=== PATIENT | male | born 1955 | race Two or more races ===

== ENCOUNTER 2024-04-02 12:23 | Inpatient (IN) | payer OTHER, MEDICAID ==
[2024-04-02] VITALS (7 sets, daily range): BP systolic 112–176; BP diastolic 77–106; PULSE 68–130; RESP 17–19; TEMP 98.2–98.9; O2SAT 96–98
[~2024-04-02] VITALS: Ht 167.6 cm; Wt 50.0 kg
[2024-04-02] MEDS: ONDANSETRON HCL 4 MG/2 ML VIAL IV ONE (13:10)
[2024-04-02] MEDS: SODIUM CHLORIDE 0.9% 1,000 ML IV ONE (13:10)
[2024-04-02 13:27] LABS: Basophils # (auto) 0.1 10 ^3/uL (0-0.2); Eosinophils # (auto) 0 10 ^3/uL (0-0.8); Neutrophils # (auto) 10.1 10 ^3/uL (1.6-8.6); White Blood Cell 12.9 10^3/uL (4.4-10.8)
[2024-04-02 13:28] LABS: Basophils % (auto) 0.6 % (0.0-2.0); Eosinophils % (auto) 0.1 % (0.0-7.0); Hematocrit 44.7 % (41.0-53.0); Hemoglobin 15.2 g/dL (13.5-17.5); Lymphocytes # (auto) 1.4 10 ^3/uL (0.4-5.4); Mean Corpuscular Hemoglobin 26.8 pg (28.0-32.0); Mean Corpuscular Hgb Conc. 34.1 g/dL (32.0-36.0); Mean Corpuscular Volume 78.7 fL (80.0-100.0); Monocytes # (auto) 1.3 10 ^3/uL (0-1.3); Monocytes % (auto) 10.2 % (0.0-12.0); Neutrophils % (auto) 78.1 % (37.0-80.0); Platelet Count (auto) 354 10^3/uL (140-450); Red Blood Cells 5.69 10^6/uL (4.5-5.90)
[2024-04-02 14:06] LABS: Alanine Aminotransferase 28 U/L (7-40); Albumin 5.3 g/dL (3.2-4.8); Alkaline Phosphatase 88 U/L (46-116); Anion Gap 13 (5-15); Aspartate Aminotransferase 30 U/L (13-40); Bilirubin, Total 1.2 mg/dL (0.2-1.0); Blood Urea Nitrogen 22 mg/dL (9-23); Calcium 11.6 mg/dL (8.7-10.4); Carbon Dioxide 25 mmol/L (20-30); Chloride 98 mmol/L (98-107); Glucose 153 mg/dL (74-106); Potassium 4.2 mmol/L (3.5-5.1); Sodium 136 mmol/L (136-145); Total Protein 8.6 g/dL (5.7-8.2)
[2024-04-02] MEDS: cloNIDine HCL 0.1 MG TAB PO ONE (15:52)
[2024-04-02] MEDS: hydrALAZINE HCL 20 MG/ML VL IV ONE (15:57)
[2024-04-02] MEDS: PANTOPRAZOLE 40 MG/10 ML VIAL INJ IV ONE (15:57)
[2024-04-02] MEDS: SODIUM CHLORIDE 0.9% 1,000 ML IV SCH (16:15)
[2024-04-02] MEDS ORDERED: ACETAMINOPHEN 325 MG TAB PO PRN (16:15)
[2024-04-02] MEDS ORDERED: HYDROcodone-ACET 5/325MG TAB PO PRN (16:15)
[2024-04-02] MEDS ORDERED: MORPHINE SULFATE INJ 2 MG/ml SYRG IV PRN ×2 (16:15)
[2024-04-02] MEDS ORDERED: NITROGLYCERIN 0.4 MG SL TAB SL PRN (16:15)
[2024-04-02 16:40] LABS: INR 1.08 (0.9-1.15); Prothrombin Time 11.4 sec (9.3-11.8)
[2024-04-02] MEDS ORDERED: AML5T PO (16:50)
[2024-04-02] MEDS ORDERED: LEVO125T7 PO (16:50)
[2024-04-02] MEDS ORDERED: ATOR20TA50 PO (17:01)
[2024-04-02 17:21] LABS: Urine Bacteria None Seen /hpf (None Seen)
[2024-04-02 18:05] LABS: Urine Blood TRACE /uL (Negative); Urine Clarity Clear (Clear); Urine Color Light-Yellow (Yellow); Urine Hyaline Cast FEW /lpf (0 - 2); Urine Protein, UAD TRACE (Negative); Urine Specific Gravity 1.015 (1.001-1.035); Urine Urobilinogen Normal (Negative); Urine WBC 1 /hpf (0 - 3); Urine pH 6.5 (5.0-9.0)
[2024-04-02] MEDS: hydrALAZINE HCL 20 MG/ML VL IV PRN (21:10)
[2024-04-03] VITALS (10 sets, daily range): BP systolic 88–175; BP diastolic 43–122; PULSE 95–136; RESP 16–19; TEMP 97.6–98.9; O2SAT 94–99
[2024-04-03] MEDS: ONDANSETRON HCL 4 MG/2 ML VIAL IV PRN (02:18)
[2024-04-03] MEDS: cloNIDine 0.1 mg/24hr 7 DAY PATCH TD SCH (03:49)
[2024-04-03 06:30] LABS: Basophils # (auto) 0 10 ^3/uL (0-0.2); Basophils % (auto) 0.1 % (0.0-2.0); Eosinophils # (auto) 0 10 ^3/uL (0-0.8); Hematocrit 42.3 % (41.0-53.0); Hemoglobin 14.4 g/dL (13.5-17.5); Lymphocytes # (auto) 1.3 10 ^3/uL (0.4-5.4); Lymphocytes % (auto) 8.5 % (10.0-50.0); Mean Corpuscular Hemoglobin 27.1 pg (28.0-32.0); Mean Corpuscular Hgb Conc. 34.1 g/dL (32.0-36.0); Mean Corpuscular Volume 79.4 fL (80.0-100.0); Monocytes # (auto) 1.3 10 ^3/uL (0-1.3); Monocytes % (auto) 8.3 % (0.0-12.0); Neutrophils # (auto) 13.1 10 ^3/uL (1.6-8.6); Neutrophils % (auto) 83.1 % (37.0-80.0); Platelet Count (auto) 350 10^3/uL (140-450); Red Blood Cells 5.32 10^6/uL (4.5-5.90); Red Cell Distribution Width 16.3 % (11.8-14.3); White Blood Cell 15.8 10^3/uL (4.4-10.8)
[2024-04-03 06:43] LABS: Alanine Aminotransferase 21 U/L (7-40); Albumin 4.8 g/dL (3.2-4.8); Alkaline Phosphatase 77 U/L (46-116); Anion Gap 12 (5-15); Aspartate Aminotransferase 34 U/L (13-40); Bilirubin, Total 0.9 mg/dL (0.2-1.0); Blood Urea Nitrogen 29 mg/dL (9-23); Calcium 10.2 mg/dL (8.7-10.4); Carbon Dioxide 24 mmol/L (20-30); Chloride 103 mmol/L (98-107); Glucose 106 mg/dL (74-106); Potassium 3.8 mmol/L (3.5-5.1); Sodium 139 mmol/L (136-145); Total Protein 7.8 g/dL (5.7-8.2)
[2024-04-03] MEDS: LEVOTHYROXINE SODIUM 25 MCG TAB PO SCH (07:00)
[2024-04-03] MEDS: LEVOTHYROXINE SODIUM 100 MCG TAB PO SCH (07:00)
[2024-04-03] MEDS: ATORVASTATIN 20 MG TAB PO SCH (09:33)
[2024-04-03] MEDS: amLODIPine BESYLATE 5 MG TAB PO SCH (09:34)
[2024-04-03] MEDS: ENOXAPARIN SOD 40 MG/0.4 ML SYRINGE SC SCH (09:35)
[2024-04-03] MEDS ORDERED: cloNIDine 0.1 mg/24hr 7 DAY PATCH TD ONE (10:00)
[2024-04-03] MEDS: OMNIPAQUE 12mg/ml 500ml ORAL SOLUTION PO ONE (15:23)
[2024-04-03] MEDS: IOHEXOL 300 MG/ML 100ML BOTTLE IJ ONE (16:48)
[2024-04-03] MEDS: cefTRIAXone 1GM/50ML D5W 50 ML IV ONE (17:35)
[2024-04-03] MEDS: SODIUM CHLORIDE 0.9% 1,000 ML IV SCH (18:00)
[2024-04-03] MEDS: METOPROLOL TARTRATE 25 MG TAB PO SCH (21:29)
[2024-04-03] MEDS: MELATONIN 5 MG TAB PO ONE (22:42)
[2024-04-04] VITALS (8 sets, daily range): BP systolic 122–176; BP diastolic 95–138; PULSE 81–122; RESP 17–20; TEMP 97.7–98.7; O2SAT 96–98
[2024-04-04] MEDS: cefTRIAXone 1GM/50ML D5W 50 ML IV SCH (09:13)
[2024-04-04] MEDS ORDERED: VANCOMYCIN PER PHARMACY 0 MG IV SCH (16:00)
[2024-04-04] MEDS: VANCOMYCIN 1GM/200ML 200 ML IV ONE (17:30)
[2024-04-04] MEDS: MELATONIN 5 MG TAB PO PRN (21:58)
[2024-04-05 01:00] VITALS: BP 193/129; PULSE 95; RESP 20; TEMP 97.9; O2SAT 98
[2024-04-05] MEDS: amLODIPine BESYLATE 5 MG TAB PO ONE (04:38)
[2024-04-05 05:00] VITALS: BP 186/121; PULSE 128; RESP 20; TEMP 98; O2SAT 96
[2024-04-05] MEDS: VANCOMYCIN 500 MG in D5W 5% 100 ML IV SCH ×2 (06:43→15:35)
[2024-04-05 08:00] VITALS: PULSE 119; PULSE 139; RESP 20; O2SAT 96
[2024-04-05 09:45] VITALS: BP 139/93; PULSE 119; RESP 20; TEMP 97.8; O2SAT 96
[2024-04-05 11:17] LABS: Free T4 (Free Thyroxine) 1.61 ng/dL (0.89-1.76)
[2024-04-05 14:49] VITALS: BP 156/99; PULSE 94; RESP 20; TEMP 97.5; O2SAT 98
[2024-04-05 17:07] VITALS: TEMP 97.4
[2024-04-06 10:31] LABS: T3 Total 1.29 ng/mL (0.60-1.81)
== END 2024-04-05 17:30 | disposition left against medical advice (07) | DRG 871 ==
LOC: ER 12:23 → TELE 16:13 → TELE-WESTW 17:52
PROVIDERS: ADMIT Internal Medicine; ATTEND Internal Medicine
DX: A41.9 Sepsis, unspecified organism (principal); N17.0 Acute kidney failure with tubular necrosis; Z68.1 Body mass index [BMI] 19.9 or less, adult; E86.0 Dehydration; E07.9 Disorder of thyroid, unspecified; K52.9 Noninfective gastroenteritis and colitis, unspecified; E78.5 Hyperlipidemia, unspecified; R62.7 Adult failure to thrive; D72.829 Elevated white blood cell count, unspecified; R00.0 Tachycardia, unspecified; I16.0 Hypertensive urgency; E11.9 Type 2 diabetes mellitus without complications; Z79.84 Long term (current) use of oral hypoglycemic drugs; Z85.818 Personal history of malignant neoplasm of other sites of lip, oral cavity, and pharynx
CPT/HCPCS: 36415; 71045; 74177; 80053; 81001; 82565; 83735; 83880; 84439; 84443; 84480; 85025; 85610; 87040; 87077; 87186; 93005; 93306; 96361; 96374; 96375; 97163; G0378; J2405; J2470; J7060